=== PATIENT | male | born 1975 ===

== ENCOUNTER 2020-12-24 08:45 | Inpatient (IN) | payer OTHER ==
[~2020-12-24] VITALS: Ht 180.3 cm; Wt 99.8 kg
== END 2021-01-02 19:05 | DRG 470 ==
LOC: EDSTATUS 08:45 → ADM 08:45 → O/R 12-31 06:45 → SURH 12-31 08:45 → SURG 12-31 16:30
PROVIDERS: ADMIT Orthopaedic Surgery; ATTEND Orthopaedic Surgery
PROC: 0SRD0JA Replacement of Left Knee Joint with Synthetic Substitute, Uncemented, Open Approach (ICD-10-PCS; principal; 2020-12-31 10:00)
DX: M17.12 Unilateral primary osteoarthritis, left knee (principal); D62 Acute posthemorrhagic anemia; M85.862 Other specified disorders of bone density and structure, left lower leg